=== PATIENT | female | born 1960 | race African-American/Black ===

== ENCOUNTER 2019-08-22 13:38 | Emergency (ER) | payer SELFPAY ==
[~2019-08-22] VITALS: Ht 160 cm; Wt 117.2 kg
[2019-08-22 14:39] VITALS: BP 129/71
--- NOTE | 2019-08-22 14:46 | PHYS DOC ---
Past Medical History Past Medical History: Hypertension Past Surgical History: No Surgical History Smoking Status: Never Smoker Alcohol Use: None Drug Use: None Adult General Chief Complaint Chief Complaint: COUGH HPI HPI Patient is a 58 year old female who presents with evaluation of body aches, upper respiratory symptoms and a headache for the past 3 to 4 days. Patient has a productive cough with scant amount of brown sputum. Patient has minimal wheezing prior to arrival. Patient does not have a history of asthma. Patient has other family members that are ill with similar complaints. Patient denies any foreign travel or exposure to anyone who traveled out of country. Patient i s otherwise benign-appearing and the vital signs are stable Review of Systems Review of Systems Constitutional: Denies fever or chills [] Eyes: Denies change in visual acuity, redness, or eye pain [] HENT: has nasal congestion and mild sore throat [] Respiratory: has cough with mild shortness of breath [] Cardiovascular: No additional information not addressed in HPI [] GI: Denies abdominal pain, nausea, vomiting, bloody stools or diarrhea [] : Denies dysuria or hematuria [] Musculoskeletal: Denies back pain or joint pain. Body aches noted [] Integument: Denies rash or skin lesions [] Neurologic: has mild headache, no focal weakness or sensory changes [] Endocrine: Denies polyuria or polydipsia [] All other systems were reviewed and found to be within normal limits, except as documented in this note. Current Medications Current Medications Current Medications Medications (Trade) Dose Ordered Sig/José Manuel Start Time Stop Time Status Last Admin Dose Admin Doxycycline Hyclate (Vibra-Tab) 100 mg 1X ONCE 08/22/19 17:30 08/22/19 17:31 UNV Prednisone (Prednisone) 60 mg 1X ONCE 08/22/19 17:00 08/22/19 17:01 DC 08/22/19 17:18 60 MG Allergies Allergies Allergies Coded Allergies Type Severity Reaction Last Updated Verified No Known Drug Allergies 08/22/19 No Physical Exam Physical Exam Constitutional: Well developed, well nourished, mild acute distress, non-toxic appearance. [] HENT: Normocephalic, atraumatic, bilateral external ears normal, oropharynx moist, no oral exudates, nose normal. [] Eyes: PERRLA, EOMI, conjunctiva normal, no discharge. [] Neck: Normal range of motion, no tenderness, supple, no stridor. [] Cardiovascular:Heart rate regular rhythm, no murmur [] Lungs & Thorax: Bilateral breath sounds clear to auscultation, no wheezing Abdomen: Bowel sounds normal, soft, no tenderness, no masses, no pulsatile masses. [] Skin: Warm, dry, no erythema, no rash. [] Back: No tenderness, no CVA tenderness. [] Extremities: No tenderness, no cyanosis, no clubbing, ROM intact, no edema. [] Neurologic: Alert and oriented X 3, normal motor function, normal sensory function, no focal deficits noted. [] Psychologic: Affect normal, judgement normal, mood normal. [] Current Patient Data Vital Signs Vital Signs Date Time Temp Pulse Resp B/P (MAP) Pulse Ox O2 Delivery O2 Flow Rate FiO2 08/22/19 14:39 98.5 129/71 (90) 95 98.5 08/22/19 14:34 22 Lab Values Laboratory Tests Test 08/22/19 15:50 Influenza Type A Antigen Negative (NEGATIVE) Influenza Type B Antigen Negative (NEGATIVE) EKG EKG [] Radiology/Procedures Radiology/Procedures PATIENT: DESI ROD ACCOUNT: [id number] : 1960 LOCATION: ER AGE: 58 SEX: F EXAM STATUS: REG ER ORD. PHYSICIAN: NATHALIE CHAVEZ DO REASON: productive cough, chest pain PROCEDURE: CHEST PA & LATERAL EXAM: Chest, 2 views per HISTORY: Productive cough. Chest pain. COMPARISON: None. FINDINGS: 2 views of the chest are obtained. There is suspected right middle and lower lobe atelectasis or interstitial infiltrate. There is no consolidation, pleural effusion or pneumothorax. The heart is normal in size. IMPRESSION: Suspected right middle and lower lobe atelectasis or interstitial infiltrate. There is no consolidation. Electronically signed by: Lilian Luz MD (08/22/2019 5:10 PM) [id number] DICTATED and SIGNED BY: LILIAN LUZ MD DATE: 08/22/19 171 Course & Med Decision Making Course & Med Decision Making Pertinent Labs and Imaging studies reviewed. (See chart for details) 1640 stable, strep results now known and are negative. Flu a and B swabs are negative. Patient states she still having some pain and pressure in her chest. Chest x-ray added to make sure she does not have pneumonia or pneumothorax. Patient was given dose of prednisone as well. Patient main complaints were all respiratory in nature 1730 stable, feeling better at this time. Subtle infiltrate noted on chest x- ray. Will cover patient with doxycycline, Medrol Dosepak, albuterol MDI. Oxygen sats are nearly normal and patient is not significantly tachypneic. Will recommend outpatient treatment of her acute respiratory condition Dragamee Disclaimer Candie Disclaimer This electronic medical record was generated, in whole or in part, using a voice recognition dictation system. Departure Departure Impression: Primary Impression: Community acquired pneumonia Disposition: HOME, SELF-CARE Condition: STABLE Referrals: NO PCP (PCP) Patient Instructions: Pneumonia, Adult Additional Instructions: Follow-up with the [facility] group at [phone] or your family doctor in the next few days. Take medication as directed, return if worsen, high fever develops, worsening shortness of air etc. You have been prescribed steroids, doxycycline antibiotic and albuterol inhaler. It would also be prudent to take obry-sks-jebsvul Mucinex as directed Scripts Albuterol Sulfate (VENTOLIN HFA INHALER) 18 Gm Hfa.aer.ad 2 PUFF INH QID for FOR ASTHMA, #1 INHALER 0 Refills Prov: NATHALIE CHAVEZ DO 08/22/19 Doxycycline Hyclate (DOXYCYCLINE HYCLATE) 100 Mg Capsule 1 CAP PO BID, #14 CAP Prov: NATHALIE CHAVEZ DO 08/22/19 Methylprednisolone (MEDROL) 4 Mg Tab.ds.pk 1 PKG PO UD for inflammation, #1 PKG Prov: NATHALIE CHAVEZ DO 08/22/19 NATHALIE CHAVEZ DO Aug 22, 2019 14:46
[2019-08-22 16:31] LABS: INFLUENZA A PATIENT NEGATIVE (NEGATIVE); INFLUENZA B PATIENT NEGATIVE (NEGATIVE)
--- NOTE | 2019-08-22 17:13 | RAD ---
EXAM: Chest, 2 views per HISTORY: Productive cough. Chest pain. COMPARISON: None. FINDINGS: 2 views of the chest are obtained. There is suspected right middle and lower lobe atelectasis or interstitial infiltrate. There is no consolidation, pleural effusion or pneumothorax. The heart is normal in size. IMPRESSION: Suspected right middle and lower lobe atelectasis or interstitial infiltrate. There is no consolidation. Electronically signed by: Lilian Luz MD (08/22/2019 5:10 PM) [id number]
[2019-08-22] MEDS: predniSONE 20 MG TABLET PO ONE (17:18)
[2019-08-22] MEDS: DOXYCYCLINE HYCLATE 100 MG TABLET PO ONE (17:30)
[2019-08-22] MEDS ORDERED: DOXY100C2 PO (17:42)
[2019-08-22] MEDS ORDERED: VENTOLIN HFA18 GM INH (17:42)
[2019-08-22] MEDS ORDERED: METH4TAB2 PO (17:42)
== END 2019-08-22 18:14 | disposition home or self-care (01) ==
LOC: ER 13:38
DX: J18.9 Pneumonia, unspecified organism (principal); I10 Essential (primary) hypertension; J45.909 Unspecified asthma, uncomplicated
CPT/HCPCS: 71046; 87070; 87804; 87880; 99284; J7512